=== PATIENT | male | born 1970 | race Hispanic/Latino ===

== ENCOUNTER 2020-09-21 21:34 | Emergency (ER) | payer MEDICAID, SELFPAY ==
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
[2020-09-21] MEDS ORDERED: ONDANSETRON 4 MG/2 ML INJ IV ONE (22:55)
[2020-09-21] MEDS ORDERED: HYDROmorphone 1 MG/1 ML INJ IV ONE (22:55)
[2020-09-21 23:19] LABS: Basophils % (Auto) 0.6 % (0.0-1.8); Eosinophils # (Auto) 0.2 K/mm3 (0.0-0.4); Eosinophils % (Auto) 2.4 % (0.0-4.3); Hematocrit 35.9 % (35.5-45.6); Lymphocytes # (Auto) 1.2 K/mm3 (1.2-5.4); Lymphocytes % (Auto) 18.9 % (13.4-35.0); Mean Corpuscular HGB Conc 34 % (32-34); Mean Corpuscular Volume 81 fl (84-94); Monocytes # (Auto) 0.6 K/mm3 (0.0-0.8); Monocytes % (Auto) 9.2 % (0.0-7.3); Platelet Count 201 K/mm3 (140-440); Red Blood Count 4.42 M/mm3 (3.65-5.03)
[2020-09-21 23:38] LABS: Alanine Aminotransferase 21 units/L (7-56); BUN/Creatinine Ratio 20; Blood Urea Nitrogen 18 mg/dL (9-20); Calcium 9.3 mg/dL (8.4-10.2); Hemolysis Index 53
[2020-09-21 23:44] LABS: Bilirubin,Direct < 0.2 mg/dL (0-0.2)
--- NOTE | 2020-09-22 01:55 | Cat Scan Report ---
CT ABDOMEN AND PELVIS WITH CONTRAST INDICATION / CLINICAL INFORMATION: pain ostomy site. bleeding form stoma. TECHNIQUE: Axial CT images were obtained through the abdomen and pelvis after IV contrast. All CT scans at this location are performed using CT dose reduction for ALARA by means of automated exposure control. COMPARISON: None available. FINDINGS: LOWER CHEST: No significant abnormality. LIVER: No significant abnormality. GALLBLADDER: No significant abnormality. BILE DUCTS: No significant abnormality. PANCREAS: No significant abnormality. SPLEEN: No significant abnormality. ADRENALS: No significant abnormality. RIGHT KIDNEY and URETER: No significant abnormality. LEFT KIDNEY and URETER: No significant abnormality. STOMACH and SMALL BOWEL: No significant abnormality. COLON: No significant abnormality. PERITONEUM: No free fluid. No free air. No fluid collection. LYMPH NODES: No significant adenopathy. AORTA and ARTERIES: No significant abnormality. IVC and VEINS: No significant abnormality. URINARY BLADDER: No significant abnormality. REPRODUCTIVE ORGANS: Dystrophic calcifications involving the prostate ADDITIONAL FINDINGS: Surgical changes present left lower quadrant SKELETAL SYSTEM: No significant abnormality. IMPRESSION: 1. No significant abnormality. Signer Name: Fawad Samson MD Signed: 09/22/2020 1:51 AM Workstation Name: [id number]
[2020-09-22 09:13] VITALS: BP 121/77
[2020-09-22] MEDS ORDERED: ALBUTEROL 8.5 GM MDI INHALATION IH PRN (10:49)
--- NOTE | 2020-09-22 10:52 | Event Note ---
Date: 09/22/20 Rounding on patient has been performed. Patient is continue to try to manipulate his colostomy. Patient was on 1013 at [facility] but was r ejected from returning. Medications have been reconciled. Urinalysis and urine drug screen have been ordered to complete medical clearance. Waiting for psych assessment. Patient resting comfortably at this time.
[2020-09-22] MEDS ORDERED: NON-FORMULARY EACH (Oxcarbazepine [Trileptal] 600 MG Tablet) PO SCH (11:00)
[2020-09-22] MEDS ORDERED: PANTOPRAZOLE 40 MG TAB PO SCH (11:00)
[2020-09-22] MEDS ORDERED: CLOPIDOGREL 75 MG TAB PO SCH (11:00)
[2020-09-22] MEDS ORDERED: NON-FORMULARY EACH (Apixaban 5 MG Tablet) PO SCH (11:00)
[2020-09-22] MEDS ORDERED: ARIPiprazole 5 MG TAB PO SCH (11:00)
[2020-09-22] MEDS ORDERED: CARVEDILOL PHOSPHATE 20 MG PO SCH (11:00)
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
[2020-09-22 12:00] LABS: Bilirubin,Urine NEG (Negative); Blood,Urine NEG (Negative); Color,Urine Yellow (Yellow); Mucus,Urine FEW /HPF; Protein,Urine <15 mg/dL mg/dL (Negative); Urobilinogen,Urine < 2.0 mg/dL (<2.0)
[2020-09-22] MEDS ORDERED: OXcarbazepine 300 MG TAB PO SCH (12:00)
[2020-09-22] MEDS ORDERED: APIXABAN 5 MG TAB PO SCH (12:00)
[2020-09-22] MEDS ORDERED: carvediloL 12.5 MG TAB PO SCH (12:00)
[2020-09-22 12:05] LABS: Cannabinoid Screen,Urine Negative; Cocaine Screen,Urine Negative; Methadone Screen,Urine Negative; Opiate Screen,Urine Negative
[2020-09-22 12:19] LABS: Amphetamine Screen,Urine Positive; Benzodiazepines Screen,Urine Positive
[2020-09-22] MEDS ORDERED: BACLOFEN 10 MG TAB PO SCH (14:00)
[2020-09-22] MEDS ORDERED: NON-FORMULARY EACH (Baclofen [Baclofen] 20 MG Tablet) PO SCH (14:00)
== END 2020-09-22 14:19 | disposition home or self-care (01) ==
LOC: EDBD → ED 21:34 → EDBD 21:34 → ED 09-22 14:19
DX: K94.03 Colostomy malfunction (principal); F15.10 Other stimulant abuse, uncomplicated; R10.33 Periumbilical pain; I10 Essential (primary) hypertension; F17.200 Nicotine dependence, unspecified, uncomplicated; Z20.822 Contact with and (suspected) exposure to COVID-19; Z79.899 Other long term (current) drug therapy; Z98.890 Other specified postprocedural states; Z88.6 Allergy status to analgesic agent; Z88.8 Allergy status to other drugs, medicaments and biological substances; Z91.013 Allergy to seafood
CPT/HCPCS: 36415; 74177; 80048; 80076; 80307; 81001; 85025; 96374; 96375; 99285; J1170; J2405; Q9967; U0003